=== PATIENT | male | born 1990 | race Caucasian/White ===

== ENCOUNTER 2020-07-09 16:48 | Inpatient (IN) | payer OTHER, SELFPAY ==
--- NOTE | 2020-07-09 18:06 | PC.ADMIT ---
Pt admitted from [facility] after presenting with SI and impulsive behaviors. Pt now denying any SI, stating he's been stressed due to working for months and not getting paid, I'm owed $50,000. Pt is calm and cooperative throughout admision process, thoughts are clear, congruent and goal oriented. Pt denies taking any medications other than Melatonin 12mg nightly. Pt smokes marijuana daily. Pt denies any medical issues and seems to be in good general health. Pt is oriented to the unit and currently awaiting his dinner tray.
[2020-07-10 06:00] VITALS: BP 120/66; PULSE 77; RESP 18; TEMP 36.6; O2SAT 99
--- NOTE | 2020-07-10 11:17 | HO.PSYADMNOT ---
HPI Chief Complaint: depression Sources of Information: patient interviewed, chart reviewed and crisis/core team assessment reviewed HPI Subjective Notes: Do Warning Narrative: The patient is a 29 year old descendant male, single Diagnostics Vital Signs (24Hr): Vital Signs - 24 hr 07/10/20 06:00 Temperature 97.9 F Pulse Rate 77 Respiratory Rate 18 Blood Pressure 120/66 Pulse Oximetry 99 Meds/Allergies Meds Home Medications Acetaminophen (Acetaminophen 325 Mg Tablet) 650 mg PO Q6H PRN PRN Reason: Headache/Pain Mild Scale (1-3) Al Hydroxide/Mg Hydroxide (Magnesium Hydrox/Alum Hydrox 30 Ml Oral.Susp) 30 ml PO Q6H PRN PRN Reason: Heartburn/Nausea Hydroxyzine HCl (Hydroxyzine Hcl 25 Mg Tablet) 25 mg PO BEDTIME PRN PRN Reason: Anxiety Magnesium Hydroxide (Milk Of Magnesia 30 Ml Oral.Susp) 30 ml PO DAILY PRN PRN Reason: Constipation Trazodone HCl (Trazodone Hcl 50 Mg Tablet) 50 mg PO BEDTIME PRN PRN Reason: Insomnia Allergies Allergies Allergy/AdvReac Type Severity Reaction Status Date / Time No Known Allergies Allergy Verified 07/09/20 17:24
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
[2020-07-10 18:00] VITALS: BP 114/58; PULSE 65; RESP 18; O2SAT 100
[2020-07-10] MEDS: Melatonin 3 MG TABLET 9 MG PO (21:41)
[2020-07-11 06:00] VITALS: BP 122/58; PULSE 97; O2SAT 97
--- NOTE | 2020-07-11 06:50 | P.CONIM_ITS ---
History of Present Illness Data of Consult Service Date: 07/11/20 Requesting physician: Alexandria Wang Primary Care Provider: Ashanti Lopez MD [facility] Reason for consult: Admission H&P This is a 29-year-old male with no significant past medical history who was admitted to [facility] for mood disorder as well as suicidal ideation. We are asked to see patient for admission H& P. Patient currently denies any acute symptoms, he reports no chest pain, no shortness of breath, no abdominal pain nausea or vomiting, no diarrhea, no urinary symptoms and no lower extremity edema. Patient reports that he was having conversation was CS so crisis stating that he was having suicidal ideation although at this time he denies it. Patient reports that he was sectioned and was brought to the hospital for further management. He is a little upset about being section but otherwise denies any acute problems. He denies any past medical history. And reports just a chronic history of just generalized aches and pains in his back, knees, and feet as well as teeth Recorded vitals within normal range Review of Systems Review of Systems: Yes all other systems are reviewed and are negative PMFSH Pertinent family history: Mother with diabetes Brother with asthma Social History Household Members: Family Housing: [facility] Do you presently have visiting nurse or other home services: No Patient Tobacco Use Status: Current everyday Tobacco user Tobacco use type: Cigarette Smoked in Last 30 Days: Yes Patient Interested in Nicotine Replacement: No Patient Given Instructions on How to Stop Smoking: No Second Hand Smoke Exposure: No Use of substances other than those prescribed or required for medical reasons: No Substance Use Type: Marijuana Currently Displaying Signs/Symptoms of Drug Intoxication Withdrawal: No Any prior treatment program specific to substance use: No Have you been hit, kicked, punched, or otherwise hurt by someone within the past year? If so, by whom?: No Do you feel safe in your current relationship?: Yes Is there a partner from a previous relationship who is making you feel unsafe now?: No Are you made to feel afraid or neglected: No Spiritual Healthcare Practices: none Advance Directives: No Advance Directives Information Provided: No Do you have thoughts of harming others: None Do you have a plan to hurt others: No Plan Recently lost weight without trying: No Eating poorly because of decreased appetite: No Nutrition Risks: No Nutritional Risk Poor oral hygiene: Yes (numerous cavities and decay) service: No Sexual orientation: Straight/Heterosexual Meds Allergies Allergy/AdvReac Type Severity Reaction Status Date / Time No Known Allergies Allergy Verified 07/09/20 17:24 Active Medications: Current Medications Generic Name Dose Route Start Last Admin Trade Name Freq PRN Reason Stop Dose Admin Acetaminophen 650 mg 07/09/20 17:24 Acetaminophen 325 Mg Tablet PO Q6H PRN Headache/Pain Mild Scale (1-3) Al Hydroxide/Mg Hydroxide 30 ml 07/09/20 17:24 Magnesium Hydrox/Alum Hydrox 30 Ml Oral.Susp PO Q6H PRN Heartburn/Nausea Hydroxyzine HCl 25 mg 07/09/20 17:24 Hydroxyzine Hcl 25 Mg Tablet PO BEDTIME PRN Anxiety Magnesium Hydroxide 30 ml 07/09/20 17:24 Milk Of Magnesia 30 Ml Oral.Susp PO DAILY PRN Constipation Melatonin 9 mg 07/10/20 21:10 07/10/20 21:41 Melatonin 3 Mg Tablet PO 9 mg BEDTIME ROSE Administration Risperidone 1 mg 07/10/20 21:00 07/10/20 21:44 Risperidone 1 Mg Tablet PO Not Given BID ROSE Trazodone HCl 50 mg 07/09/20 17:24 Trazodone Hcl 50 Mg Tablet PO BEDTIME PRN Insomnia Home Medications Medication Instructions Recorded Confirmed Last Taken Type melatonin 10 mg PO BEDTIME PRN MDD 10 07/11/20 07/11/20 Unknown History Physical Exam Vital Signs and Narrative: Vital Signs: Last Vital Signs Temp 97.9 F 07/10/20 06:00 Pulse 65 07/10/20 18:00 Resp 18 07/10/20 18:00 BP 114/58 L 07/10/20 18:00 Pulse Ox 100 07/10/20 18:00 Const: General: cooperative and no acute distress Orientation/consciousness: patient oriented x3 Eyes: General: appearance normal, both eyes and all related structures Resp: Effort & Inspection: normal respiratory effort and able to speak in complete sentences Cardio: Rate: regular rate GI: Palpation (GI): Soft to palpation Skin: General skin exam: no rashes or lesions noted Neuro: General: patient oriented x3 Cognition (Neuro): normal cognition Extrem: General: Yes normal to inspection and Yes no pedal edema Assessment and Plan (1) Mood disorder: Status: Acute This is a 29-year-old male with no significant past medical history who presents to the hospital and admitted to [facility] for mood disorder as well as possible suicidal ideation. Currently patient denies any suicidal or homicidal ideation. We are asked to see patient for admission H&P Patient denies any acute medical complaints. For his general aches and pains will order Tylenol p.r.n. Suicidal ideation is/mood disorder management per psych team. Thank you for this consult, This time will sign off, if needed for any acute medical issues please reach out
[2020-07-11] MEDS: Acetaminophen 325 MG TABLET 650 MG PO (09:32)
[2020-07-11] MEDS: risperiDONE 1 MG TABLET PO (15:07)
[2020-07-11 18:00] VITALS: BP 120/73; PULSE 82; RESP 16; O2SAT 98
--- NOTE | 2020-07-11 21:52 | HO.PSYCHPN ---
Subjective Subjective Date of Service: 07/11/20 Reason For Visit: depression Subjective Notes: Conditional Voluntary and 3 Day Healthcare Proxy: No Guardianship: No Medical Problems Affecting Mental Status: No Interim History: Several questions about rationale for admission and several theories. Refusing Risperdal Pt asked about mood stabilizers. We reviewed all of them. He asked for information on Lamictal. 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 Medication Compliance: No Side effects from medications: No Attending Groups: Yes Review of Systems Reports behavioral changes Psychiatric: Reports anxiety, Reports behavioral changes, Reports difficulty concentrating, Reports irritability, Reports anhedonia and Reports mood swings Mental Status Exam Mental Status Exam Patient Appearance: Appropriate Patient Orientation: Person, Place, Time and Situation Level of Consciousness: Awake and Alert Patient Behavior: Talkative Mood Description: Suspicious, Constricted and Angry Affect Description: Suspicious and Constricted Patient Cognition Impaired: No Ability to Follow Directions: Good Speech Pattern: Spontaneous Speech Memory Description: Episodic Impaired Hallucinations: None Delusions: Being Controlled Thought Process: Distracted and Rumination Thought Content: positive for Circumstantial Judgement: Fair Diagnostics Vital Signs (24Hr): Vital Signs - 24 hr 07/11/20 06:00 07/11/20 18:00 Pulse Rate 97 82 Respiratory Rate 16 Blood Pressure 122/58 L 120/73 Pulse Oximetry 97 98 Medications Medications Current Medications Generic Name Dose Route Start Last Admin Trade Name Freq PRN Reason Stop Dose Admin Acetaminophen 650 mg 07/09/20 17:24 07/11/20 09:32 Acetaminophen 325 Mg Tablet PO 325 mg Q6H PRN Administration Headache/Pain Mild Scale (1-3) Al Hydroxide/Mg Hydroxide 30 ml 07/09/20 17:24 Magnesium Hydrox/Alum Hydrox 30 Ml Oral.Susp PO Q6H PRN Heartburn/Nausea Hydroxyzine HCl 25 mg 07/09/20 17:24 Hydroxyzine Hcl 25 Mg Tablet PO BEDTIME PRN Anxiety Lamotrigine 25 mg 07/11/20 21:00 Lamotrigine 25 Mg Tablet PO BEDTIME ROSE Magnesium Hydroxide 30 ml 07/09/20 17:24 Milk Of Magnesia 30 Ml Oral.Susp PO DAILY PRN Constipation Melatonin 9 mg 07/10/20 21:10 07/10/20 21:41 Melatonin 3 Mg Tablet PO 9 mg BEDTIME ROSE Administration Risperidone 1 mg 07/10/20 21:00 07/11/20 15:07 Risperidone 1 Mg Tablet PO 1 mg BID ROSE Administration Trazodone HCl 50 mg 07/09/20 17:24 Trazodone Hcl 50 Mg Tablet PO BEDTIME PRN Insomnia Allergies Allergies Allergy/AdvReac Type Severity Reaction Status Date / Time No Known Allergies Allergy Verified 07/09/20 17:24 Assessment & Plan Assessment & Plan (1) Mood disorder: Status: Acute Code(s): F39 - Unspecified mood [affective] disorder Assessment and Plan: This is a 29-year-old male with no significant past medical history who presents to the hospital and admitted to [facility] for mood disorder as well as possible suicidal ideation. Currently patient denies any suicidal or homicidal ideation. We are asked to see patient for admission H&P Patient denies any acute medical complaints. For his general aches and pains will order Tylenol p.r.n. Suicidal ideation is/mood disorder management per psych team. Lamictal 25 mg HS. Pt asked that it be ordered, although he may not accept it. He has literature to review as well as literature on Risperdal. Greater than 50% of the session was spent on counseling and/or coordination of care Reason for contiued inpatient stay Substantial Risk for: harm to self, harm to others, inability to function and rapid decompensation
[2020-07-11] MEDS: Melatonin 3 MG TABLET 9 MG PO (22:13)
[2020-07-12 06:00] VITALS: BP 124/58; PULSE 93; RESP 16; TEMP 36.6; O2SAT 99
[2020-07-12] MEDS: risperiDONE 1 MG TABLET PO (08:32)
[2020-07-12] MEDS: Acetaminophen 325 MG TABLET 650 MG PO ×2 (08:32→21:51)
[2020-07-12 18:00] VITALS: BP 125/78; PULSE 96; RESP 16; TEMP 36.7; O2SAT 97
[2020-07-12] MEDS: Melatonin 3 MG TABLET 9 MG PO (21:52)
--- NOTE | 2020-07-12 21:58 | HO.PSYCHPN ---
Subjective Subjective Date of Service: 07/12/20 Reason For Visit: depression Subjective Notes: Conditional Voluntary and 3 Day Healthcare Proxy: No Guardianship: No Medical Problems Affecting Mental Status: No Interim History: Team reports pt took 1/2 dose Risperdal. Declined lamictal trial Wanting discharge on 07/13. Medication Compliance: No Side effects from medications: No Attending Groups: Yes Review of Systems Reports behavioral changes Psychiatric: Reports anxiety, Reports behavioral changes, Reports depression, Reports irritability, Reports mood swings and Reports suicidal ideation (denies) Mental Status Exam Mental Status Exam Patient Appearance: Appropriate Patient Orientation: Person, Place, Time and Situation Level of Consciousness: Alert Patient Behavior: Appropriate, Talkative and Cooperative Mood Description: Labile Affect Description: Labile Patient Cognition Impaired: No Ability to Follow Directions: Good Speech Pattern: Clear, Appropriate and Spontaneous Speech Memory Description: Episodic Impaired Hallucinations: None Delusions: Not Present Thought Process: Distracted Thought Content: positive for Circumstantial Judgement: Fair Diagnostics Vital Signs (24Hr): Vital Signs - 24 hr 07/12/20 06:00 07/12/20 18:00 Temperature 97.8 F 98.0 F Pulse Rate 93 96 Respiratory Rate 16 16 Blood Pressure 124/58 L 125/78 Pulse Oximetry 99 97 Medications Medications Current Medications Generic Name Dose Route Start Last Admin Trade Name Freq PRN Reason Stop Dose Admin Acetaminophen 650 mg 07/09/20 17:24 07/12/20 21:51 Acetaminophen 325 Mg Tablet PO 325 mg Q6H PRN Administration Headache/Pain Mild Scale (1-3) Al Hydroxide/Mg Hydroxide 30 ml 07/09/20 17:24 Magnesium Hydrox/Alum Hydrox 30 Ml Oral.Susp PO Q6H PRN Heartburn/Nausea Hydroxyzine HCl 25 mg 07/09/20 17:24 Hydroxyzine Hcl 25 Mg Tablet PO BEDTIME PRN Anxiety Lamotrigine 25 mg 07/11/20 21:00 07/11/20 22:18 Lamotrigine 25 Mg Tablet PO Not Given BEDTIME ROSE Magnesium Hydroxide 30 ml 07/09/20 17:24 Milk Of Magnesia 30 Ml Oral.Susp PO DAILY PRN Constipation Melatonin 9 mg 07/10/20 21:10 07/12/20 21:52 Melatonin 3 Mg Tablet PO 6 mg BEDTIME ROSE Administration Risperidone 1 mg 07/10/20 21:00 07/12/20 08:32 Risperidone 1 Mg Tablet PO 0.5 mg BID ROSE Administration Trazodone HCl 50 mg 07/09/20 17:24 Trazodone Hcl 50 Mg Tablet PO BEDTIME PRN Insomnia Allergies Allergies Allergy/AdvReac Type Severity Reaction Status Date / Time No Known Allergies Allergy Verified 07/09/20 17:24 Assessment & Plan Assessment & Plan (1) Mood disorder: Status: Acute Code(s): F39 - Unspecified mood [affective] disorder Assessment and Plan: This is a 29-year-old male with no significant past medical history who presents to the hospital and admitted to [facility] for mood disorder as well as possible suicidal ideation. Currently patient denies any suicidal or homicidal ideation. We are asked to see patient for admission H&P Patient denies any acute medical complaints. For his general aches and pains will order Tylenol p.r.n. Suicidal ideation is/mood disorder management per psych team. Lamictal 25 mg HS. Pt asked that it be ordered, although he decided not to accept it. He has literature to review as well as literature on Risperdal. Greater than 50% of the session was spent on counseling and/or coordination of care Reason for contiued inpatient stay Substantial Risk for: harm to self, harm to others, inability to function and rapid decompensation
[2020-07-13 06:00] VITALS: BP 134/76; PULSE 75; RESP 18; TEMP 36.7; O2SAT 99
[2020-07-13] MEDS: risperiDONE 1 MG TABLET PO ×2 (09:41→22:02)
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
[2020-07-13] MEDS: hydrOXYzine HCL 25 MG TABLET PO (17:46)
[2020-07-13] MEDS: lamoTRIgine 25 MG TABLET PO (22:02)
[2020-07-13] MEDS: Melatonin 3 MG TABLET 9 MG PO (22:02)
[2020-07-14] MEDS: risperiDONE 1 MG TABLET PO ×2 (09:23→21:58)
[2020-07-14 10:59] VITALS: BP 124/58; PULSE 91; O2SAT 99
--- NOTE | 2020-07-14 13:40 | HO.PSYCHPN ---
Subjective Subjective Date of Service: 07/14/20 Reason For Visit: depression Interim History: The patient has been more redirectable on the unit, he has been compliant with medications. On intake, he had some psychotic symptoms but later it was clear that he was manic. Medication Compliance: Yes Side effects from medications: No Mental Status Exam Mental Status Exam Patient Appearance: Disheveled Patient Orientation: Person, Place, Time and Situation Level of Consciousness: Awake Patient Behavior: Appropriate and Cooperative Mood Description: Withdrawn Affect Description: Labile Patient Cognition Impaired: No Ability to Follow Directions: Good Speech Pattern: Clear Memory Description: Intact Hallucinations: None Delusions: Not Present Thought Process: Evasive Thought Content: positive for Thought Blocking Judgement: Fair Diagnostics Vital Signs (24Hr): Vital Signs - 24 hr 07/14/20 10:59 Pulse Rate 91 Blood Pressure 124/58 L Pulse Oximetry 99 Medications Medications Current Medications Generic Name Dose Route Start Last Admin Trade Name Freq PRN Reason Stop Dose Admin Acetaminophen 650 mg 07/09/20 17:24 07/12/20 21:51 Acetaminophen 325 Mg Tablet PO 325 mg Q6H PRN Administration Headache/Pain Mild Scale (1-3) Al Hydroxide/Mg Hydroxide 30 ml 07/09/20 17:24 Magnesium Hydrox/Alum Hydrox 30 Ml Oral.Susp PO Q6H PRN Heartburn/Nausea Hydroxyzine HCl 25 mg 07/09/20 17:24 07/13/20 17:46 Hydroxyzine Hcl 25 Mg Tablet PO 25 mg BEDTIME PRN Administration Anxiety Lamotrigine 25 mg 07/11/20 21:00 07/13/20 22:02 Lamotrigine 25 Mg Tablet PO 25 mg BEDTIME ROSE Administration Magnesium Hydroxide 30 ml 07/09/20 17:24 Milk Of Magnesia 30 Ml Oral.Susp PO DAILY PRN Constipation Melatonin 9 mg 07/10/20 21:10 07/13/20 22:02 Melatonin 3 Mg Tablet PO 9 mg BEDTIME ROSE Administration Risperidone 1 mg 07/10/20 21:00 07/14/20 09:23 Risperidone 1 Mg Tablet PO 1 mg BID ROSE Administration Trazodone HCl 50 mg 07/09/20 17:24 Trazodone Hcl 50 Mg Tablet PO BEDTIME PRN Insomnia Allergies Allergies Allergy/AdvReac Type Severity Reaction Status Date / Time No Known Allergies Allergy Verified 07/09/20 17:24 Assessment & Plan Assessment & Plan (1) Mood disorder: Status: Acute Code(s): F39 - Unspecified mood [affective] disorder Assessment and Plan: This is a 29-year-old male with no significant past medical history who presents to the hospital and admitted to U for mood disorder as well as possible suicidal ideation. Currently patient denies any suicidal or homicidal ideation. We are asked to see patient for admission H&P Plan: 1. Keep Risperdal and Lamictal. 2. Get collateral. 3. Arrange family meeting. Greater than 50% of the session was spent on counseling and/or coordination of care Reason for contiued inpatient stay Substantial Risk for: inability to function, rapid decompensation and med/psych decompensation
[2020-07-14] MEDS: lamoTRIgine 25 MG TABLET PO (21:58)
[2020-07-14] MEDS: Melatonin 3 MG TABLET 9 MG PO (21:58)
[2020-07-14 22:23] VITALS: BP 136/66; PULSE 81; TEMP 36.8; O2SAT 97
[2020-07-15 06:00] VITALS: BP 123/90; PULSE 69; RESP 16; TEMP 36.3; O2SAT 99
--- NOTE | 2020-07-15 09:29 | HO.PSYCHPN ---
Subjective Subjective Date of Service: 07/15/20 Reason For Visit: depression Interim History: The patient has been more visible in the unit, he didn't attend to any groups. As per nursing staff, he was compliant with treatment. No side effects. We will have a family meeting soon. He expressed his wish to be discharged as soon as possible. Mental Status Exam Mental Status Exam Patient Appearance: Disheveled and Unkempt Patient Orientation: Person, Place, Time and Situation Level of Consciousness: Awake Patient Behavior: Hyperactive Mood Description: Calm Affect Description: Constricted and Labile Ability to Follow Directions: Fair Speech Pattern: Clear Memory Description: Intact Hallucinations: None Delusions: Paranoid Ideation and Grandiose Thought Process: Goal Oriented Thought Content: positive for Preoccupation and positive for Loose Associations Judgement: Fair Diagnostics Vital Signs (24Hr): Vital Signs - 24 hr 07/14/20 10:59 07/14/20 22:23 07/15/20 06:00 Temperature 98.3 F 97.3 F Pulse Rate 91 81 69 Respiratory Rate 16 Blood Pressure 124/58 L 136/66 123/90 H Pulse Oximetry 99 97 99 Medications Medications Current Medications Generic Name Dose Route Start Last Admin Trade Name Freq PRN Reason Stop Dose Admin Acetaminophen 650 mg 07/09/20 17:24 07/12/20 21:51 Acetaminophen 325 Mg Tablet PO 325 mg Q6H PRN Administration Headache/Pain Mild Scale (1-3) Al Hydroxide/Mg Hydroxide 30 ml 07/09/20 17:24 Magnesium Hydrox/Alum Hydrox 30 Ml Oral.Susp PO Q6H PRN Heartburn/Nausea Hydroxyzine HCl 25 mg 07/09/20 17:24 07/13/20 17:46 Hydroxyzine Hcl 25 Mg Tablet PO 25 mg BEDTIME PRN Administration Anxiety Lamotrigine 25 mg 07/11/20 21:00 07/14/20 21:58 Lamotrigine 25 Mg Tablet PO 25 mg BEDTIME ROSE Administration Magnesium Hydroxide 30 ml 07/09/20 17:24 Milk Of Magnesia 30 Ml Oral.Susp PO DAILY PRN Constipation Melatonin 9 mg 07/10/20 21:10 07/14/20 21:58 Melatonin 3 Mg Tablet PO 9 mg BEDTIME ROSE Administration Risperidone 1 mg 07/10/20 21:00 07/14/20 21:58 Risperidone 1 Mg Tablet PO 1 mg BID ROSE Administration Trazodone HCl 50 mg 07/09/20 17:24 Trazodone Hcl 50 Mg Tablet PO BEDTIME PRN Insomnia Allergies Allergies Allergy/AdvReac Type Severity Reaction Status Date / Time No Known Allergies Allergy Verified 07/09/20 17:24 Assessment & Plan Assessment & Plan (1) Mood disorder: Status: Acute Code(s): F39 - Unspecified mood [affective] disorder Assessment and Plan: This is a 29-year-old male with no significant past medical history who presents to the hospital and admitted to [facility] for mood disorder as well as possible suicidal ideation. Currently patient denies any suicidal or homicidal ideation. We are asked to see patient for admission H&P Plan: 1. Keep Risperdal and Lamictal. 2. Get collateral. 3. Arrange family meeting. Greater than 50% of the session was spent on counseling and/or coordination of care Reason for contiued inpatient stay Substantial Risk for: harm to self, inability to function, rapid decompensation and med/psych decompensation
[2020-07-15] MEDS: risperiDONE 1 MG TABLET PO ×2 (09:44→21:36)
[2020-07-15 21:25] VITALS: BP 139/72; PULSE 68; RESP 20; O2SAT 100
[2020-07-15] MEDS: Melatonin 3 MG TABLET 9 MG PO (21:36)
[2020-07-15] MEDS: lamoTRIgine 25 MG TABLET PO (21:36)
[2020-07-16 06:00] VITALS: BP 106/62; PULSE 103; RESP 16; O2SAT 99
[2020-07-16] MEDS: risperiDONE 1 MG TABLET PO ×2 (09:13→22:22)
--- NOTE | 2020-07-16 13:42 | HO.PSYCHPN ---
Subjective Subjective Date of Service: 07/16/20 Reason For Visit: depression Interim History: The patient's family visited him yesterday and he showed manic symptoms, with labile mood and increased psychomotor agitation. He verbalized his wish to be discharged but he has never signed a 3 day notice letter. Mental Status Exam Mental Status Exam Patient Appearance: Disheveled and Unkempt Patient Orientation: Person, Place, Time and Situation Level of Consciousness: Awake and Appropriate Patient Behavior: Appropriate Mood Description: Elated Affect Description: Labile Patient Cognition Impaired: No Ability to Follow Directions: Good Speech Pattern: Clear Memory Description: Intact Hallucinations: None Delusions: Not Present Thought Process: Distracted and Evasive Thought Content: positive for Circumstantial and positive for Poverty of Content Judgement: Fair Diagnostics Vital Signs (24Hr): Vital Signs - 24 hr 07/15/20 21:25 07/16/20 06:00 Pulse Rate 68 103 H Respiratory Rate 20 16 Blood Pressure 139/72 106/62 Pulse Oximetry 100 99 Medications Medications Current Medications Generic Name Dose Route Start Last Admin Trade Name Freq PRN Reason Stop Dose Admin Acetaminophen 650 mg 07/09/20 17:24 07/12/20 21:51 Acetaminophen 325 Mg Tablet PO 325 mg Q6H PRN Administration Headache/Pain Mild Scale (1-3) Al Hydroxide/Mg Hydroxide 30 ml 07/09/20 17:24 Magnesium Hydrox/Alum Hydrox 30 Ml Oral.Susp PO Q6H PRN Heartburn/Nausea Hydroxyzine HCl 25 mg 07/09/20 17:24 07/13/20 17:46 Hydroxyzine Hcl 25 Mg Tablet PO 25 mg BEDTIME PRN Administration Anxiety Lamotrigine 25 mg 07/11/20 21:00 07/15/20 21:36 Lamotrigine 25 Mg Tablet PO 25 mg BEDTIME ROSE Administration Magnesium Hydroxide 30 ml 07/09/20 17:24 Milk Of Magnesia 30 Ml Oral.Susp PO DAILY PRN Constipation Melatonin 9 mg 07/10/20 21:10 07/15/20 21:36 Melatonin 3 Mg Tablet PO 9 mg BEDTIME ROSE Administration Risperidone 1 mg 07/10/20 21:00 07/16/20 09:13 Risperidone 1 Mg Tablet PO 1 mg BID ROSE Administration Trazodone HCl 50 mg 07/09/20 17:24 Trazodone Hcl 50 Mg Tablet PO BEDTIME PRN Insomnia Allergies Allergies Allergy/AdvReac Type Severity Reaction Status Date / Time No Known Allergies Allergy Verified 07/09/20 17:24 Assessment & Plan Assessment & Plan (1) Mood disorder: Status: Acute Code(s): F39 - Unspecified mood [affective] disorder Assessment and Plan: This is a 29-year-old male with no significant past medical history who presents to the hospital and admitted to [facility] for mood disorder as well as possible suicidal ideation. Currently patient denies any suicidal or homicidal ideation. We are asked to see patient for admission H&P Plan: 1. Keep Risperdal and Lamictal. 2. Get collateral. 3. Arrange family meeting. Greater than 50% of the session was spent on counseling and/or coordination of care Reason for contiued inpatient stay Substantial Risk for: inability to function, rapid decompensation and med/psych decompensation
[2020-07-16] MEDS: Acetaminophen 325 MG TABLET 650 MG PO (16:40)
[2020-07-16 22:00] VITALS: BP 120/73; PULSE 72; RESP 16; TEMP 36.9; O2SAT 97
[2020-07-16] MEDS: lamoTRIgine 25 MG TABLET PO (22:22)
[2020-07-16] MEDS: Melatonin 3 MG TABLET 9 MG PO (22:22)
[2020-07-17 06:00] VITALS: BP 101/53; PULSE 73; RESP 18; TEMP 36.8; O2SAT 99
--- NOTE | 2020-07-17 06:53 | PM.PSYDC ---
DS: Providers Provider Date of Service: 07/17/20 Date of admission: 07/09/20 16:48 Date of discharge: 07/17/20 Primary care physician: Ashanti Lopez MD Attending physician on discharge: Geoffrey Back DS: Diagnosis Discharge Diagnosis (1) Mood disorder: Status: Acute DS: Medications Discharge Medications Home Medications: Home Medications Medication Instructions Recorded Confirmed melatonin 10 mg PO BEDTIME PRN MDD 10 07/11/20 07/11/20 Discharge Plan Discharge Patient Disposition: Home, Self-Care Discharge Diagnosis: Bipolar disorder Referrals: Ashanti Lopez MD [Primary Care Provider] - 1 Week Discharge Medications: New lamotrigine [Lamictal] 25 mg tablet 25 mg PO DAILY 30 Days Qty: 30 RF: 0 risperidone [Risperdal] 1 mg tablet 1 mg PO BID 30 Days Qty: 60 RF: 0 melatonin 10 mg tablet 10 mg PO BEDTIME PRN (Reason: sleep) 30 Days RF: 0 Discontinued melatonin 10 mg 10 mg PO BEDTIME MDD 10 PRN (Reason: Sleep) RF: 0 Discharge Orders: Discharge Order (Routine); Ordered 07/17/20 Ordered By: Geoffrey Back Activity on Discharge: As tolerated Stand Alone Forms: Patient Portal Discharge page Care Plan Goals: Continue Care Plan Goals started at intake Health Concerns: None, continue treatment with PCP Plan of Treatment: Continue medication management and psychotherapy as outpatient Assessment: Adult descendant male with bipolar diosorder admitted for a mixed episode with suicidal ideation in the context of poor compliance. Mental Status Exam Mental Status Exam Patient Appearance: Well Grooomed Patient Orientation: Person, Place, Time and Situation Level of Consciousness: Awake and Appropriate Patient Behavior: Cooperative Mood Description: Calm Affect Description: Constricted Patient Cognition Impaired: No Ability to Follow Directions: Good Speech Pattern: Clear Memory Description: Intact Hallucinations: None Delusions: Not Present Thought Process: Goal Oriented Thought Content: positive for Intact (denies suicidal or homicidal thoughts.) Judgement: Fair DS: Summary Hospital Course Hospital Course: The patient was admitted after been assessed by crisis in [place]. Recently, he had several crisis assessments and he was discharged a few days ago from inpatient psychiatry. The patient reported to crisis suicidal ideation by stepping in front of a truck. He carries the diagnosis of Bipolar disorder and he was not compliant with treatment. On admission, he was manic with flight of ideas but he adamantly denied suicidal ideation. I offered him long acting antipsychotics to help his compliance but he refused. He alleged that he was allergic to Zyprexa but he didn't have any symptoms when he was medicated IM at the [facility]. He started taking Risperdal 1 mg po bid and Lamictal 25 mg with good tolerability and his mood improved with less manic symptoms. Since there were no safety concerns, discharge planning was discussed. Time spent discussing smoking cessation with patient: 3 to 10 minutes Status at Discharge Functional status at discharge: independent ambulation Overall status at discharge: patient is back to baseline Time Spent with Patient Time attestation: Total time spent providing and/or coordinating discharge services: Time spent: Less than 30 minutes
[2020-07-17] MEDS: risperiDONE 1 MG TABLET PO (09:29)
--- NOTE | 2020-07-17 10:39 | PC.NURSE ---
PT IS AWARE AND READY FOR DISCHARGE. PT DENIES DEPRESSION AND ANXIETY AT THIS TIME. HE HAS BEEN VISIBLE ON THE UNIT AND SOCIAL WITH PEERS. HE HAS BEEN ATTENDING ART AND PSYCH GROUPS. PT HAS NOT HAD ANY EXPLOSIVE EPISODES. PT IS MEDICATION COMPLIANT. HE IS OPEN TO EDUCATION REGARDING MEDICATIONS, COPING SKILLS, AND DISCHARGE. PT IS ABLE TO ADVOCATE HIS NEEDS. HE IS EATING AND SLEEPING ADEQUATELY. PT DENIES SUICIDAL OR HOMICIDAL IDEATIONS. HE DENIES AUDITORY OR VISUAL HALLUCINATIONS. PT FEELS SAFE AT THIS TIME. HE HAS APPOINTMENTS FOR PSYCHIATRY MADE. HE HAS BEEN GIVEN INFORMATION FOR A PCP FOLLOW UP. HIS PAPERWORK WILL BE FAXED TO PROVIDERS PER [facility].
== END 2020-07-17 12:01 | disposition home or self-care (01) | DRG 753 ==
PROVIDERS: Admitting Provider Psychiatry & Neurology Psychiatry; PCP Family Medicine; Visit Provider Psychiatry & Neurology Psychiatry
DX: F31.9 Bipolar disorder, unspecified (principal); R45.851 Suicidal ideations; Z91.14 Patient's other noncompliance with medication regimen; F17.210 Nicotine dependence, cigarettes, uncomplicated; Z71.6 Tobacco abuse counseling; Z79.899 Other long term (current) drug therapy

== ENCOUNTER 2020-07-22 10:25 | Inpatient (IN) | payer OTHER, SELFPAY ==
--- NOTE | ~2020-07-22 | XR_ITS ---
EXAMINATION: XR WRIST, RIGHT XR HAND, RIGHT CLINICAL INFORMATION: Injury now with pain. COMPARISON: None TECHNIQUE: Cone-down navicular view of the right wrist and PA, lateral, and oblique views of the right hand FINDINGS: RIGHT WRIST: The bones and soft tissues are normal. No fracture. Alignment is anatomic. Joint spaces are maintained. No erosions or soft tissue calcifications. RIGHT HAND: The bones and soft tissues are normal. No fracture. Alignment is anatomic. Joint spaces are maintained. No erosions or soft tissue calcifications. XR/XR hand wrist RT IMPRESSION: Normal right hand and wrist.
--- NOTE | ~2020-07-22 | XR_ITS ---
EXAMINATION: XR WRIST, LEFT XR HAND, LEFT CLINICAL INFORMATION: Injury. Now with pain. COMPARISON: None TECHNIQUE: Cone-down navicular of the left wrist and PA, lateral, and oblique views of the left hand FINDINGS: LEFT WRIST: The bones and soft tissues are normal. No fracture. Alignment is anatomic. Joint spaces are maintained. No erosions or soft tissue calcifications. LEFT HAND: The bones and soft tissues are normal. No fracture. Alignment is anatomic. Joint spaces are maintained. No erosions or soft tissue calcifications. XR/XR hand wrist LT IMPRESSION: Normal left hand and wrist.
[2020-07-22 11:04] VITALS: BP 113/85; BP 120/76; PULSE 92; PULSE 94; RESP 16; TEMP 36.9; O2SAT 100; BMI 27.6
--- NOTE | 2020-07-22 11:13 | ECG_ITS ---
Test Reason : CHECK QT Blood Pressure : / mmHG Vent. Rate : 088 BPM Atrial Rate : 088 BPM P-R Int : 160 ms QRS Dur : 098 ms QT Int : 366 ms P-R-T Axes : 075 080 066 degrees QTc Int : 442 ms Normal sinus rhythm Normal ECG No previous ECGs available Referred By: Valorie Shannon Electronically Signed By:FREDDIE RGANT
[2020-07-22 11:32] LABS: Amphetamine Screen Urine Not Detected (Not Detect); Barbiturates, Urine Not Detected (Not Detect); Benzodiazepines Screen Urine Not Detected (Not Detect); Cannabinoid Screen Urine POSITIVE (Not Detect); Cocaine Screen Urine Not Detected (Not Detect); Opiate Screen Urine Not Detected (Not Detect); Phencyclidine Screen Urine Not Detected (Not Detect)
[2020-07-22 11:40] VITALS: BP 113/85; PULSE 94; RESP 15; TEMP 36.9; O2SAT 100
[2020-07-22 12:00] LABS: MANUAL DIFF FLAG NO
[2020-07-22 12:04] LABS: Basophils Absolute Auto 0.1 X10*3/uL (0.0-0.2); Basophils Percent Auto 0.6 % (0-2); Eosinophils Absolute Auto 0.1 X10*3/uL (0.0-0.4); Eosinophils Percent Auto 1.1 % (0-4); Hemoglobin 13.6 g/dl (14.0-18.0); Imm Gran Abs Auto 0.02 X10*3/uL (0.00-0.03); Imm Gran Pct Auto 0.3 % (0.0-0.4); Lymphocytes Absolute Auto 2.2 X10*3/uL (1.2-4.9); Lymphocytes Percent Auto 27.1 % (20-40); Mean Corpuscular HGB Conc 34.9 g/dl (31.0-36.0); Mean Corpuscular Hemoglobin 30.4 pg (27.0-33.0); Mean Corpuscular Volume 87.1 fL (80-98); Mean Platelet Volume 8.6 fL (9.4-12.4); Monocytes Absolute Auto 0.7 X10*3/uL (0.1-1.2); Monocytes Percent Auto 8.4 % (2-11); Neutrophils Percent Auto 62.5 % (45-73); Platelet Count 203 X10*3/uL (160-400); Red Blood Count 4.48 X10*6/uL (4.60-5.80); Red Cell Distribution Width 12.7 % (11.0-16.0)
[2020-07-22 12:08] LABS: Prothrombin Time 11.9 SEC (10.8-13.0)
[2020-07-22 12:29] LABS: Glucose Urine UA NEG (NEG); Leukocyte Esterase Urine NEG (NEG); Nitrite Urine NEG (NEG); Specific Gravity - Urine 1.015 (1.005-1.025); Urine Blood NEG (NEG); Urine Ketones NEG (NEG); Urine Protein NEG (NEG-TRACE)
[2020-07-22 12:30] LABS: Ethanol < 10 mg/dL
[2020-07-22 12:30] LABS: Appearance Urine CLEAR; Color Urine YELLOW
[2020-07-22 12:33] LABS: Alanine Aminotransferase 20 U/L (0-40); Albumin Level 4.6 g/dL (3.5-5.0); Alkaline Phosphatase 87 U/L (39-117); Anion Gap 10 (12-20); Aspartate Amino Transferase 23 U/L (5-37); Bilirubin Total 1.2 mg/dL (0.0-1.0); Blood Urea Nitrogen 17 mg/dL (9-16); Calcium 9.3 mg/dL (8.4-10.2); Carbon Dioxide 27 mmol/L (22-29); Chloride 105 mmol/L (96-108); Creatinine Clr Calc Pharmacy 126.6; Estimated Glomerular Filt Rate > 60; Glucose Random 118 mg/dL (60-115); Magnesium 2.3 mg/dL (1.6-2.6); Sodium 138 mmol/L (135-145); Total Protein 6.9 g/dL (6.5-8.0)
[2020-07-22 12:37] LABS: COVID-19 Test Negative (Negative); IDNOW Serial# 9DD0AD1C
--- NOTE | 2020-07-22 12:38 | ED.PSYCH ---
HPI - Psych General Chief Complaint: Psychiatric Symptoms Stated Complaint: PSYCH CRISIS Time Seen by Provider: 07/22/20 10:46 Source: patient and EMS Mode of arrival: EMS Limitations: no limitations History of Present Illness HPI Narrative: 30-year-old male with a past medical history of mood/bipolar disorder presenting to the ED via EMS after someone called police/EMS after he was in a verbal altercation over the phone with his father and uncle. 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 He denies any SI/HI/auditory visual hallucinations thoughts of self-injury. Reports that he was just upset. Reports he uses marijuana otherwise denies any other drugs. Denies any alcohol usage. Reports he was recently admitted to and discharged on 07/17/2020 is taking his medications as prescribed. 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) Duration: resolved prior to arrival History of same: Yes Relieving factors: none Exacerbating factors: other (Father and uncle) Associated psychiatric symptoms: none Associated symptoms: denies other symptoms Related Data Previous Rx's Medication Instructions Recorded lamotrigine [Lamictal] 25 mg PO DAILY 30 Days #30 tab 07/17/20 melatonin 10 mg PO BEDTIME PRN 30 Days tab 07/17/20 risperidone [Risperdal] 1 mg PO BID 30 Days #60 tab 07/17/20 Allergies Allergy/AdvReac Type Severity Reaction Status Date / Time No Known Allergies Allergy Verified 07/09/20 17:24 Review of Systems Review of Systems: Constitutional : No Fever, No Chills ENT/Mouth : No Ear Pain, No Nasal Congestion, No sore throat Eyes: No Eye Pain, No Swelling, No Redness Cardiovascular : No Chest Pain, No SOB Respiratory : No Cough, No Sputum, No Dyspnea Gastrointestinal : No ingestions, No Nausea, No Vomiting, No Diarrhea, No Hematochezia, No Melena Genitourinary : No Dysuria, No Urinary Frequency, No Hematuria Musculoskeletal : No Myalgias Skin : No Skin Lesions, No rash Neuro : No Weakness, No Numbness, No Paresthesias, No Dizziness, No Headache Psych : Positive agitation, No Anxiety, No Depression, No SI, No thoughts of self injury, No HI, No AVH, Heme/Lymph: No Lymphadenopathy Endocrine : No Polyuria, No Polydipsia Yes all other systems are reviewed and are negative [facility] Past Medical History Attestation statement: The following information was validated with the patient. Social History Social History Household Members: Family [facility] Do you presently have visiting nurse or other home services: No Patient Tobacco Use Status: Current everyday Tobacco user Tobacco use type: Cigarette Second Hand Smoke Exposure: No Use of substances other than those prescribed or required for medical reasons: Yes Substance Use Type: Marijuana Substance Use Frequency: Recent Binge Last Used Substance: Hours (ago) Any prior treatment program specific to substance use: No Advance Directives: No Advance Directives Information Provided: No service: No Sexual orientation: Straight/Heterosexual Physical Exam Vital Signs: Vital Signs: Last Vital Signs Temp 98.4 F 07/22/20 11:40 Pulse 94 07/22/20 11:40 Resp 15 07/22/20 11:40 BP 113/85 07/22/20 11:40 Pulse Ox 100 07/22/20 11:40 Body Mass Index 27.6 vital signs have been reviewed as normal and appeared to be correct. Blood pressure normal. Heart rate normal. Respiration rate normal. Temperature normal. Oxygen saturation normal. Appearance: Alert. Oriented X3. No acute distress. Head: Normal external exam. Normocephalic. Atraumatic. No Spring signs noted. No raccoon eyes noted Eyes: PERRLA. EOMI. Conjunctiva and sclera normal. Eyelids normal. ENT: EAC normal. TM's Normal. Pharynx normal. Uvula midline. Moist mucous membranes. No trismus noted. No drooling noted. No muffled voice noted. Neck: Normal inspection. Neck supple. FROM. No adenopathy. Thyroid Normal. No meningeal signs. No neck mass noted. CVS: Normal heart rate and rhythm. Heart sound normal. No murmurs noted. Pulses normal throughout. Respiratory: No respiratory distress. Painless inspiration. Breath sounds normal. No wheezes/rales/rhonchi noted. Chest nontender. No accessory muscle usage noted or decreased air movement noted. Abdomen: Soft and nontender. Bowel sounds normal in all 4 quadrants. No distention noted. No organomegaly noted. No visible injury noted. Back: No CVA tenderness. Full range of motion noted. Skin: Skin warm and dry. Normal skin color. Normal skin turgor. No rashes/lesions/lacerations noted. Extremities: No lower extremity edema. Extremities exhibit normal range of motion. Extremities nontender. Neuro: Oriented X 3. No motor deficit. No sensory deficit. Reflexes normal. Psych: Appearance grossly normal although disheveled, mental status normal, speech and movement normal, speech clear, patient appears very sad and anxious along with depressed. Is cooperative. Does not have normal thought process/thought contact. Does not have good insight or judgment. Course Course Course Narrative: 11:13am - 30-year-old male presenting via EMS after someone called EMS/police due to he was having a verbal altercation over the phone with his uncle and father. Denies any SI/HI/auditory visual sensations thoughts of self-injury. Denies drug usage or alcohol usage. Plan: Labs, EKG for medical clearance, bilateral hand x-rays then re-evaluate. Reevaluation(s) Reevaluation #1: - labs reviewed and within normal limits. UA within normal limits no evidence of UTI. Patient positive for marijuana negative for all other drugs. Patient negative for EtOH. Negative for COVID. Bilateral hand/wrist x-rays negative for any acute processes. - patient medically cleared at this time and placing physician observation because the patient needs more time to be evaluated by N to evaluate for the need for psychiatric rehabilitation. At this time patient is alert and oriented x3. Not in any acute distress. No focal neuro deficits are noted. Lungs clear auscultation. CV RRR. Abdomen is soft and nontender. Will continue to monitor until the patient is evaluated by [facility]. Time: 12:49 Reevaluation #2: - [facility] evaluated the patient and they reported that they believe that the patient can be safely discharged although they want to speak to the patient's family before discharging the patient and they reported that they would come back with a decision at that time. Will continue to monitor insulin and physician observation. Time: 17:17 [facility] - Psych Medical Records Attestation: I reviewed the patient's medical records. Lab Data Attestation: I reviewed the patient's lab results. Result diagrams: 07/22/20 11:54 07/22/20 11:54 Labs: Lab Results 07/22/20 07/22/20 07/22/20 Range/Units 10:52 10:52 11:54 WBC 8.0 (4.8-10.8) X10*3/uL RBC 4.48 L (4.60-5.80) X10*6/uL Hgb 13.6 L (14.0-18.0) g/dl Hct 39.0 L (42-52) % MCV 87.1 (80-98) fL MCH 30.4 (27.0-33.0) pg MCHC 34.9 (31.0-36.0) g/dl RDW 12.7 (11.0-16.0) % Plt Count 203 (160-400) X10*3/uL MPV 8.6 L (9.4-12.4) fL Immature Gran % (Auto) 0.3 (0.0-0.4) % Neut % (Auto) 62.5 (45-73) % Lymph % (Auto) 27.1 (20-40) % [place] % (Auto) 8.4 (2-11) % Eos % (Auto) 1.1 (0-4) % Baso % (Auto) 0.6 (0-2) % Lymph # (Auto) 2.2 (1.2-4.9) X10*3/uL [place] # (Auto) 0.7 (0.1-1.2) X10*3/uL Eos # (Auto) 0.1 (0.0-0.4) X10*3/uL Baso # (Auto) 0.1 (0.0-0.2) X10*3/uL Abs Immat Gran (auto) 0.02 (0.00-0.03) X10*3/uL Absolute Neuts (auto) 5.0 (2.0-8.3) X10*3/uL Absolute Nucleated RBC 0.000 (0.0-0.012) X10*3/uL Nucleated RBC % (auto) 0.0 (0.0-0.2) /100WBC PT (10.8-13.0) SEC INR (0.9-1.1) Sodium (135-145) mmol/L Potassium (3.3-5.1) mmol/L Chloride (96-108) mmol/L Carbon Dioxide (22-29) mmol/L Anion Gap (12-20) BUN (9-16) mg/dL Creatinine (0.5-1.4) mg/dL Estim Creat Clear Calc Estimated GFR Random Glucose (60-115) mg/dL Calcium (8.4-10.2) mg/dL Magnesium (1.6-2.6) mg/dL Total Bilirubin (0.0-1.0) mg/dL AST (5-37) U/L ALT (0-40) U/L Alkaline Phosphatase (39-117) U/L Total Protein (6.5-8.0) g/dL Albumin (3.5-5.0) g/dL Urine Color YELLOW Urine Appearance CLEAR Urine pH 7.0 (5.0-8.0) Ur Specific [place] 1.015 (1.005-1.025) Urine Protein NEG (NEG-TRACE) MG/DL Urine Glucose (UA) NEG (NEG) MG/DL Urine Ketones NEG (NEG) MG/DL Urine Blood NEG (NEG) Urine Nitrite NEG (NEG) Ur Leukocyte Esterase NEG (NEG) Urine Opiates Screen Not Detected (Not Detect) Ur Barbiturates Screen Not Detected (Not Detect) Ur Phencyclidine Scrn Not Detected (Not Detect) Ur Amphetamines Screen Not Detected (Not Detect) U Benzodiazepines Scrn Not Detected (Not Detect) Urine Cocaine Screen Not Detected (Not Detect) U Marijuana (THC) Screen POSITIVE H (Not Detect) Ethyl Alcohol mg/dL COVID-19 (NIA) (Negative) COVID-19 Clin Com 07/22/20 07/22/20 07/22/20 Range/Units 11:54 11:54 11:54 WBC (4.8-10.8) X10*3/uL RBC (4.60-5.80) X10*6/uL Hgb (14.0-18.0) g/dl Hct (42-52) % MCV (80-98) fL MCH (27.0-33.0) pg MCHC (31.0-36.0) g/dl RDW (11.0-16.0) % Plt Count (160-400) X10*3/uL MPV (9.4-12.4) fL Immature Gran % (Auto) (0.0-0.4) % Neut % (Auto) (45-73) % Lymph % (Auto) (20-40) % [place] % (Auto) (2-11) % Eos % (Auto) (0-4) % Baso % (Auto) (0-2) % Lymph # (Auto) (1.2-4.9) X10*3/uL [place] # (Auto) (0.1-1.2) X10*3/uL Eos # (Auto) (0.0-0.4) X10*3/uL Baso # (Auto) (0.0-0.2) X10*3/uL Abs Immat Gran (auto) (0.00-0.03) X10*3/uL Absolute Neuts (auto) (2.0-8.3) X10*3/uL Absolute Nucleated RBC (0.0-0.012) X10*3/uL Nucleated RBC % (auto) (0.0-0.2) /100WBC PT 11.9 (10.8-13.0) SEC INR 1.0 (0.9-1.1) Sodium 138 (135-145) mmol/L Potassium 4.0 (3.3-5.1) mmol/L Chloride 105 (96-108) mmol/L Carbon Dioxide 27 (22-29) mmol/L Anion Gap 10 L (12-20) BUN 17 H (9-16) mg/dL Creatinine 0.93 (0.5-1.4) mg/dL Estim Creat Clear Calc 126.6 Estimated GFR > 60 Random Glucose 118 H (60-115) mg/dL Calcium 9.3 (8.4-10.2) mg/dL Magnesium 2.3 (1.6-2.6) mg/dL Total Bilirubin 1.2 H (0.0-1.0) mg/dL AST 23 (5-37) U/L ALT 20 (0-40) U/L Alkaline Phosphatase 87 (39-117) U/L Total Protein 6.9 (6.5-8.0) g/dL Albumin 4.6 (3.5-5.0) g/dL Urine Color Urine Appearance Urine pH (5.0-8.0) Ur Specific [place] (1.005-1.025) Urine Protein (NEG-TRACE) MG/DL Urine Glucose (UA) (NEG) MG/DL Urine Ketones (NEG) MG/DL Urine Blood (NEG) Urine Nitrite (NEG) Ur Leukocyte Esterase (NEG) Urine Opiates Screen (Not Detect) Ur Barbiturates Screen (Not Detect) Ur Phencyclidine Scrn (Not Detect) Ur Amphetamines Screen (Not Detect) U Benzodiazepines Scrn (Not Detect) Urine Cocaine Screen (Not Detect) U Marijuana (THC) Screen (Not Detect) Ethyl Alcohol < 10 mg/dL COVID-19 (NIA) (Negative) COVID-19 Clin Com 07/22/20 Range/Units 11:54 WBC (4.8-10.8) X10*3/uL RBC (4.60-5.80) X10*6/uL Hgb (14.0-18.0) g/dl Hct (42-52) % MCV (80-98) fL MCH (27.0-33.0) pg MCHC (31.0-36.0) g/dl RDW (11.0-16.0) % Plt Count (160-400) X10*3/uL MPV (9.4-12.4) fL Immature Gran % (Auto) (0.0-0.4) % Neut % (Auto) (45-73) % Lymph % (Auto) (20-40) % [place] % (Auto) (2-11) % Eos % (Auto) (0-4) % Baso % (Auto) (0-2) % Lymph # (Auto) (1.2-4.9) X10*3/uL [place] # (Auto) (0.1-1.2) X10*3/uL Eos # (Auto) (0.0-0.4) X10*3/uL Baso # (Auto) (0.0-0.2) X10*3/uL Abs Immat Gran (auto) (0.00-0.03) X10*3/uL Absolute Neuts (auto) (2.0-8.3) X10*3/uL Absolute Nucleated RBC (0.0-0.012) X10*3/uL Nucleated RBC % (auto) (0.0-0.2) /100WBC PT (10.8-13.0) SEC INR (0.9-1.1) Sodium (135-145) mmol/L Potassium (3.3-5.1) mmol/L Chloride (96-108) mmol/L Carbon Dioxide (22-29) mmol/L Anion Gap (12-20) BUN (9-16) mg/dL Creatinine (0.5-1.4) mg/dL Estim Creat Clear Calc Estimated GFR Random Glucose (60-115) mg/dL Calcium (8.4-10.2) mg/dL Magnesium (1.6-2.6) mg/dL Total Bilirubin (0.0-1.0) mg/dL AST (5-37) U/L ALT (0-40) U/L Alkaline Phosphatase (39-117) U/L Total Protein (6.5-8.0) g/dL Albumin (3.5-5.0) g/dL Urine Color Urine Appearance Urine pH (5.0-8.0) Ur Specific [place] (1.005-1.025) Urine Protein (NEG-TRACE) MG/DL Urine Glucose (UA) (NEG) MG/DL Urine Ketones (NEG) MG/DL Urine Blood (NEG) Urine Nitrite (NEG) Ur Leukocyte Esterase (NEG) Urine Opiates Screen (Not Detect) Ur Barbiturates Screen (Not Detect) Ur Phencyclidine Scrn (Not Detect) Ur Amphetamines Screen (Not Detect) U Benzodiazepines Scrn (Not Detect) Urine Cocaine Screen (Not Detect) U Marijuana (THC) Screen (Not Detect) Ethyl Alcohol mg/dL COVID-19 (NIA) Negative (Negative) COVID-19 Clin Com See Note Imaging Data Bilateral hand/wrist x-rays: Attestation: I personally reviewed and interpreted this imaging study as follows: Radiologist's impression: FINDINGS: RIGHT WRIST: The bones and soft tissues are normal. No fracture. Alignment is anatomic. Joint spaces are maintained. No erosions or soft tissue calcifications. RIGHT HAND: The bones and soft tissues are normal. No fracture. Alignment is anatomic. Joint spaces are maintained. No erosions or soft tissue calcifications. XR/XR hand wrist RT IMPRESSION: Normal right hand and wrist. Discharge Plan Discharge Clinical Impression: Mood disorder, Schizoaffective disorder Prescriptions: No Action lamotrigine [Lamictal] 25 mg tablet 25 mg PO DAILY 30 Days Qty: 30 RF: 0 risperidone [Risperdal] 1 mg tablet 1 mg PO BID 30 Days Qty: 60 RF: 0 melatonin 10 mg tablet 10 mg PO BEDTIME PRN (Reason: sleep) 30 Days RF: 0
--- NOTE | 2020-07-22 12:50 | MHC.CARE ---
Call from [facility] Interactive Web Developer, Connie, clinician assigned to evaluate this patient is starting shift at 1:00pm and be sent here.
[2020-07-22] MEDS: lamoTRIgine 25 MG TABLET PO (13:19)
[2020-07-22] MEDS: risperiDONE 1 MG TABLET PO ×2 (13:19→20:58)
[2020-07-22] MEDS: Acetaminophen 325 MG TABLET 975 MG PO (14:00)
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
[2020-07-22] MEDS: OLANZapine 10 MG TABLET PO (19:26)
[2020-07-22 20:00] VITALS: RESP 18
[2020-07-22 21:51] VITALS: RESP 18
[2020-07-22 22:00] VITALS: RESP 16
[2020-07-23] VITALS: RESP 16
--- NOTE | 2020-07-23 02:31 | PC.NURSE ---
report given to beverly on M3- plan to bring patient upstairs upon awakening/after shift change.
--- NOTE | 2020-07-23 08:55 | PC.NURSE ---
pt escalating, becoming angry stating that he is being held against his will, making statements that security better stick around. Pt stating he is going to get a architectural administrative assistant and oliver this hospital, [facility], and all of the other hospitals pt pacing and agitated. Angry about his breakfast but refusing to state what he would like to eat.
[2020-07-23] MEDS: lamoTRIgine 25 MG TABLET PO (09:10)
[2020-07-23] MEDS: risperiDONE 1 MG TABLET PO ×2 (09:10→22:45)
[2020-07-23 09:34] VITALS: BP 125/64; PULSE 99; TEMP 36.6; O2SAT 97
--- NOTE | 2020-07-23 12:22 | PC.NURSE ---
PT SLEEPING IN HIS ROOM AT THIS TIME. RESP EVEN & NONLABOURED.
--- NOTE | 2020-07-23 14:05 | PC.NURSE ---
IN FOR VISIT. MOTHER GIVEN UPDATED WITH PT CONSENT.
--- NOTE | 2020-07-23 15:11 | PC.NURSE ---
RN TO RN REPORT GIVEN FOR M5 ADMISSION. UNIT NURSE WILL BE ARRIVING TO SIGN 12B.
[2020-07-23 17:55] VITALS: BP 118/61; PULSE 87; TEMP 36.6
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
[2020-07-24] MEDS: Melatonin 3 MG TABLET 9 MG PO (02:01)
[2020-07-24 06:00] VITALS: BP 95/51; PULSE 78; RESP 18; TEMP 36.1; O2SAT 99
[2020-07-24] MEDS: lamoTRIgine 25 MG TABLET PO (08:22)
[2020-07-24] MEDS: risperiDONE 1 MG TABLET PO ×2 (08:22→20:50)
[2020-07-24 08:53] LABS: Estimated Average Glucose 100 mg/dL; Hemoglobin A1c % 5.1 %
[2020-07-24 08:56] LABS: Cholesterol 167 mg/dL; HDL Cholesterol 41 mg/dL; LDL Cholesterol Calculated 108 mg/dl; Triglycerides 93 mg/dL
[2020-07-24 09:17] LABS: Thyroid Stimulating Hormone 0.55 uIU/mL (0.32-4.0); Vitamin D 25-OH Total 23.6 ng/mL (>30)
[2020-07-24 09:35] LABS: Folate 14.7 ng/mL (> or = 4.0); Vitamin B12 404 pg/mL (200-900)
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
[2020-07-24 18:00] VITALS: BP 106/60; PULSE 82; TEMP 36.9
[2020-07-24] MEDS: Acetaminophen 325 MG TABLET 975 MG PO (19:38)
[2020-07-25] MEDS: Melatonin 3 MG TABLET 9 MG PO ×2 (02:00→22:06)
[2020-07-25 06:00] VITALS: BP 120/66; PULSE 99; RESP 18; TEMP 36.6; O2SAT 99
[2020-07-25] MEDS: risperiDONE 1 MG TABLET PO ×2 (08:14→20:40)
--- NOTE | 2020-07-25 10:10 | HO.PSYCHPN ---
Subjective Subjective Date of Service: 07/25/20 Reason For Visit: schizoaffective disorder, bipolar type Subjective Notes: Section 12B Healthcare Proxy: No Guardianship: No Medical Problems Affecting Mental Status: No Medication Compliance: Yes Side effects from medications: No Attending Groups: Intermittent Review of Systems denies s/e of medications Mental Status Exam Mental Status Exam Narrative: Positive and engaged with interviewer Patient Appearance: Appropriate Patient Orientation: Person, Place, Time and Situation Level of Consciousness: Awake Patient Behavior: Appropriate Behavior Comments: ?minimizes problems Mood Description: Calm Affect Description: Calm Ability to Follow Directions: Good Speech Pattern: Clear and Pressured (mild) Hallucinations: None Thought Process: Racing Thought Content: positive for Intact Abnormal Motor Activity Signs and Symptoms: Restlessness Judgement: Fair Diagnostics Vital Signs (24Hr): Vital Signs - 24 hr 07/24/20 18:00 07/25/20 06:00 Temperature 98.4 F 98 F Pulse Rate 82 99 Respiratory Rate 18 Blood Pressure 106/60 120/66 Pulse Oximetry 99 Body Mass Index 27.6 this can not be accurate! Labs Results: 07/22/20 11:54 07/22/20 11:54 Labs: Laboratory Results - last 48 hr 07/24/20 07/24/20 07/24/20 08:13 08:13 08:13 Estimat Average Glucose 100 Hemoglobin A1c % 5.1 Triglycerides 93 Cholesterol 167 LDL Cholesterol, Calc 108 HDL Cholesterol 41 Vitamin B12 404 25-OH Vitamin D Total 23.6 Folate 14.7 TSH 0.55 Imaging Radiology Impressions: ITS Impressions Hand/Wrist X-Ray 07/22/20 11:13 IMPRESSION: Normal left hand and wrist. Hand/Wrist X-Ray 07/22/20 11:13 IMPRESSION: Normal right hand and wrist. Medications Medications Current Medications Generic Name Dose Route Start Last Admin Trade Name Freq PRN Reason Stop Dose Admin Acetaminophen 975 mg 07/22/20 12:01 07/24/20 19:38 Acetaminophen 325 Mg Tablet PO 975 mg Q6H PRN Administration pain Al Hydroxide/Mg Hydroxide 30 ml 07/23/20 15:30 Magnesium Hydrox/Alum Hydrox 30 Ml Oral.Susp PO Q6H PRN Heartburn/Nausea Hydroxyzine HCl 25 mg 07/23/20 15:30 Hydroxyzine Hcl 25 Mg Tablet PO BEDTIME PRN Anxiety Magnesium Hydroxide 30 ml 06/17/21 15:30 Milk Of Magnesia 30 Ml Oral.Susp PO DAILY PRN Constipation Melatonin 9 mg 07/22/20 12:41 07/25/20 02:00 Melatonin 3 Mg Tablet PO 9 mg BEDTIME PRN Administration sleep Risperidone 1 mg 07/22/20 12:45 07/25/20 08:14 Risperidone 1 Mg Tablet PO 1 mg BID ROSE Administration Trazodone HCl 50 mg 07/23/20 15:30 Trazodone Hcl 50 Mg Tablet PO BEDTIME PRN Insomnia Allergies Allergies Allergy/AdvReac Type Severity Reaction Status Date / Time No Known Allergies Allergy Verified 07/09/20 17:24 Assessment & Plan Assessment & Plan (1) Schizoaffective disorder: Status: Acute Code(s): F25.9 - Schizoaffective disorder, unspecified Assessment and Plan: PROVISIONAL DX (2) Chronic post-traumatic stress disorder (PTSD): Status: Chronic Code(s): F43.12 - Post-traumatic stress disorder, chronic Assessment and Plan: Pt reports [facility] Feels risperidone and melatonin are helpful. Looking forward to going home and helping with kids hoping to get oked for apartment with Plan: Patient on Section 12 Q 15 minutes checks Continue Risperdal 1 mg b.i.d. Greater than 50% of the session was spent on counseling and/or coordination of care Reason for contiued inpatient stay Substantial Risk for: inability to function and rapid decompensation
[2020-07-25 18:00] VITALS: BP 117/61; PULSE 82; TEMP 36.6
[2020-07-26 06:00] VITALS: BP 115/58; PULSE 70; RESP 16; TEMP 36.5; O2SAT 98
[2020-07-26] MEDS: risperiDONE 1 MG TABLET PO ×2 (08:08→21:20)
--- NOTE | 2020-07-26 12:29 | HO.PSYCHPN ---
Subjective Subjective Date of Service: 07/26/20 Reason For Visit: schizoaffective disorder, bipolar type Subjective Notes: Section 12B Healthcare Proxy: No Guardianship: No Medical Problems Affecting Mental Status: No Interim History: Pt co back pain, knee pain- and one toe numb Mentally he feels good saw exceited to go home has [facility] intake Monday Medication Compliance: Yes Side effects from medications: No Attending Groups: Intermittent Review of Systems Acute medical concerns: No pains are not new nor medication related Mental Status Exam Mental Status Exam Narrative: casually dressed, fairly kempt , good eye contact Patient Orientation: Person, Place, Time and Situation Level of Consciousness: Awake Patient Behavior: Appropriate Mood Description: Calm Affect Description: Calm and Expansive Patient Cognition Impaired: No Ability to Follow Directions: Good Speech Pattern: Clear Hallucinations: None Thought Process: Intact Judgement: Fair Diagnostics Vital Signs (24Hr): Vital Signs - 24 hr 07/25/20 18:00 07/26/20 06:00 Temperature 98 F 97.7 F Pulse Rate 82 70 Respiratory Rate 16 Blood Pressure 117/61 115/58 L Pulse Oximetry 98 Body Mass Index 27.6 Labs Results: 07/22/20 11:54 07/22/20 11:54 Imaging Radiology Impressions: ITS Impressions Hand/Wrist X-Ray 07/22/20 11:13 IMPRESSION: Normal left hand and wrist. Hand/Wrist X-Ray 07/22/20 11:13 IMPRESSION: Normal right hand and wrist. Medications Medications Current Medications Generic Name Dose Route Start Last Admin Trade Name Freq PRN Reason Stop Dose Admin Acetaminophen 975 mg 07/22/20 12:01 07/24/20 19:38 Acetaminophen 325 Mg Tablet PO 975 mg Q6H PRN Administration pain Al Hydroxide/Mg Hydroxide 30 ml 07/23/20 15:30 Magnesium Hydrox/Alum Hydrox 30 Ml Oral.Susp PO Q6H PRN Heartburn/Nausea Hydroxyzine HCl 25 mg 07/23/20 15:30 Hydroxyzine Hcl 25 Mg Tablet PO BEDTIME PRN Anxiety Magnesium Hydroxide 30 ml 07/23/20 15:30 Milk Of Magnesia 30 Ml Oral.Susp PO DAILY PRN Constipation Melatonin 9 mg 07/22/20 12:41 07/25/20 22:06 Melatonin 3 Mg Tablet PO 9 mg BEDTIME PRN Administration sleep Risperidone 1 mg 07/22/20 12:45 07/26/20 08:08 Risperidone 1 Mg Tablet PO 1 mg BID ROSE Administration Trazodone HCl 50 mg 07/23/20 15:30 Trazodone Hcl 50 Mg Tablet PO BEDTIME PRN Insomnia Allergies Allergies Allergy/AdvReac Type Severity Reaction Status Date / Time No Known Allergies Allergy Verified 07/09/20 17:24 Assessment & Plan Assessment & Plan (1) Schizoaffective disorder: Status: Acute Code(s): F25.9 - Schizoaffective disorder, unspecified Assessment and Plan: PROVISIONAL DX (2) Chronic post-traumatic stress disorder (PTSD): Status: Chronic Code(s): F43.12 - Post-traumatic stress disorder, chronic Assessment and Plan: Pt reports he has providers [facility] Feels risperidone and melatonin are helpful. Looking forward to going home and helping with kids hoping to get oked for apartment with lipids ok Plan: Patient on Section 12 Q 15 minutes checks Continue Risperdal 1 mg b.i.d. Greater than 50% of the session was spent on counseling and/or coordination of care Reason for contiued inpatient stay Substantial Risk for: rapid decompensation
[2020-07-26 18:00] VITALS: BP 105/59; PULSE 80; TEMP 26.6
[2020-07-26] MEDS: Melatonin 3 MG TABLET 9 MG PO (23:38)
[2020-07-27 06:00] VITALS: BP 133/69; PULSE 97; TEMP 36.7
[2020-07-27] MEDS: risperiDONE 1 MG TABLET PO (09:02)
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
== END 2020-07-27 12:25 | disposition home or self-care (01) | DRG 750 ==
LOC: HO.ED 07-23 02:32 → HO.PM5 07-23 15:42
PROVIDERS: Clinical Nurse Specialist Psychiatric/Mental Health, Adult; Physician Assistant Medical; Admitting Provider Psychiatry & Neurology Psychiatry; Emergency Provider Emergency Medicine; PCP Family Medicine; Visit Provider Psychiatry & Neurology Psychiatry
DX: F25.9 Schizoaffective disorder, unspecified (principal); F17.210 Nicotine dependence, cigarettes, uncomplicated; F43.12 Post-traumatic stress disorder, chronic; Z71.6 Tobacco abuse counseling; M79.642 Pain in left hand; M79.641 Pain in right hand; Z20.822 Contact with and (suspected) exposure to COVID-19; Z79.899 Other long term (current) drug therapy
CPT/HCPCS: 36415; 73110; 73130; 80053; 80061; 80307; 81003; 82077; 82306; 82607; 82746; 83036; 83735; 84443; 85025; 85610; 87635; 93005; 99285